=== PATIENT | female | born 1945 | race African-American/Black ===

== ENCOUNTER → 2024-04-08 14:10 | Outpatient (REF) | payer MEDICARE, OTHER, SELFPAY | LOC: WDC 14:10 | PROVIDERS: ATTENDING PHYSICIAN Obstetrics & Gynecology | DX: Z12.31 Encounter for screening mammogram for malignant neoplasm of breast (principal) | CPT/HCPCS: 77063; 77067 ==

== ENCOUNTER → 2024-06-16 09:35 | Outpatient (REF) | payer MEDICARE, OTHER, SELFPAY | LOC: WDC 09:35 | PROVIDERS: ATTENDING PHYSICIAN Nurse Practitioner Family | DX: N64.52 Nipple discharge (principal) | CPT/HCPCS: 76642 ==

== ENCOUNTER 2024-07-18 06:15 | Day surgery (SDC) | payer MEDICARE, OTHER, SELFPAY ==
[2024-07-18 12:14] VITALS: BMI 18.5
[2024-07-18 12:15] VITALS: BP 135/56; BMI 18.5
[2024-07-18] MEDS: NORMOSOL-R/PLASMALYTE-A 1000 IV (12:32)
[2024-07-18] MEDS: TYLENOL 1000 MG PO (12:32)
[2024-07-18] MEDS: LOVENOX 40 MG SC (12:50)
[2024-07-18] MEDS: VANCOCIN 200 IV (12:51)
[2024-07-18 12:52] LABS: Hematocrit 30.5 % (37.0-47.0); Hemoglobin 10.6 g/dL (12.0-16.0); Mean Corp Hgb Conc. 34.8 g/dL (33.0-37.0); Mean Corpuscular Hgb 27.6 pg (27.0-31.0); Mean Corpuscular Volume 79.4 fL (81.0-99.0); Mean Platelet Volume 11.4 fL (7.4-10.4); Platelet Count 226 10^3/uL (130-400); Red Blood Cell Count 3.84 10^6/uL (4.20-5.40); Red Cell Dist. Width 12.8 % (11.5-14.5); White Blood Cell Count 4.2 10^3/uL (4.8-10.8)
[2024-07-18 13:11] LABS: ALT (SGPT) 14 U/L (0-35); AST (SGOT) 30 U/L (14-36); Albumin 4.6 g/dl (3.5-5.0); Alkaline Phosphatase 70 U/L (38-126); Blood Urea Nitrogen 22 mg/dl (7-17); Calcium 10.3 mg/dl (8.4-10.2); Carbon Dioxide 27 mmol/L (22-30); Chloride 101 mmol/L (98-107); Estimated Creatinine Clearance 32 ml/min; Glucose 89 mg/dl (70-99); Potassium 5.1 mmol/L (3.5-5.1); Sodium 139 mmol/L (135-145); Total Bilirubin 0.5 mg/dl (0.2-1.3); eGFR 57.66
[2024-07-18 14:15] VITALS: BP 111/55
[2024-07-18 14:30] VITALS: BP 121/48
[2024-07-18 14:45] VITALS: BP 120/55
[2024-07-18 15:00] VITALS: BP 130/48
== END 2024-07-18 15:26 | disposition home or self-care (01) ==
LOC: SDS 06:15
PROVIDERS: ATTENDING PHYSICIAN Surgery
DX: N64.52 Nipple discharge (principal)
CPT/HCPCS: 19110; 88305; 88307; 80053; 85027; 93005; A4648; L8000

== ENCOUNTER → 2024-09-15 12:27 | Outpatient (REF) | payer MEDICARE, OTHER, SELFPAY | LOC: RAD 12:27 | PROVIDERS: ATTENDING PHYSICIAN Family Medicine | DX: R09.89 Other specified symptoms and signs involving the circulatory and respiratory systems (principal) | CPT/HCPCS: 93880 ==

== ENCOUNTER → 2025-01-28 12:19 | Outpatient (REF) | payer MEDICARE, OTHER, SELFPAY | LOC: HWRAD 12:19 | PROVIDERS: ATTENDING PHYSICIAN Specialist; FAMILY PHYSICIAN Family Medicine | DX: R35.0 Frequency of micturition (principal) | CPT/HCPCS: 76770 ==

== ENCOUNTER → 2025-04-09 14:32 | Outpatient (REF) | payer MEDICARE, OTHER, SELFPAY | LOC: WDC 14:32 | PROVIDERS: ATTENDING PHYSICIAN Obstetrics & Gynecology; FAMILY PHYSICIAN Family Medicine | DX: Z12.31 Encounter for screening mammogram for malignant neoplasm of breast (principal) | CPT/HCPCS: 77063; 77067 ==

== ENCOUNTER → 2025-04-23 09:45 | Outpatient (REF) | payer MEDICARE, OTHER, SELFPAY | LOC: WDC 09:45 | PROVIDERS: ATTENDING PHYSICIAN Obstetrics & Gynecology; FAMILY PHYSICIAN Family Medicine | DX: R92.8 Other abnormal and inconclusive findings on diagnostic imaging of breast (principal) | CPT/HCPCS: 76642 ==